=== PATIENT | female | born 2000 | race Caucasian/White ===

== ENCOUNTER 2023-08-12 11:40 | Emergency (ER) | payer MEDICAID ==
[~2023-08-12] VITALS: Ht 165.1 cm; Wt 81.0 kg
[2023-08-12 11:58] VITALS: BP 142/79; PULSE 90; RESP 20; TEMP 98.2; O2SAT 100
[2023-08-12] MEDS ORDERED: FLUORESCEIN SODIUM 1MG/STRIP BOTHEYE ONE (13:45)
[2023-08-12] MEDS ORDERED: TETRACAINE 0.5% OPHTH DROPS 4ML BOTHEYE ONE (13:45)
[2023-08-12] MEDS ORDERED: CIPR5DRO EACHEYE (14:27)
[2023-08-12] MEDS ORDERED: PRED5DRO22 LEFTEYE (14:27)
== END 2023-08-12 15:15 | disposition home or self-care (01) ==
LOC: ER 11:52
DX: H10.32 Unspecified acute conjunctivitis, left eye (principal); H53.142 Visual discomfort, left eye
CPT/HCPCS: 99283